=== PATIENT | female | born 1955 | race African-American/Black ===

== ENCOUNTER 2019-04-20 14:06 | Outpatient (CLI) | payer MEDICARE ==
--- NOTE | 2019-04-20 15:57 | ULT ---
THYROID ULTRASOUND INDICATION: Elevated parathormone level TECHNIQUE: Grayscale and color Doppler images were obtained of the thyroid gland. COMPARISON: None FINDINGS: Right thyroid lobe: The right thyroid lobe measures 4.3 x 1.8 x 1.7 cm. There is a hypoechoic 8 mm so lid nodule within the superior pole of the right thyroid lobe. And it additional 6 mm predominantly solid nodule seen within the superior to mid right thyroid lobe. Small thyroid cysts are seen within the midpole of the right thyroid gland. Thyroid isthmus: The thyroid isthmus measures 0.4 cm. Left thyroid lobe: The left thyroid lobe measures 4.9 x 1.3 x 1.2 cm. There is a 6 mm cyst within the superior pole of the left thyroid lobe. There is a 4 mm hypoechoic nodule seen within the mid left thyroid lobe. An additional 3 to 4 mm nodule seen within the mid left thyroid lobe. No suspicious nodules are seen in the expected regions of the parathyroid glands. IMPRESSION: 1. TIRADS 3 lesions of the right and left thyroid lobe. These are below 1.5 cm in size. No sonographi c follow up is recommended. 2. No suspicious nodules are seen within the expected regions of the parathyroid glands.
== END 2019-04-20 14:07 | disposition home or self-care (01) ==
LOC: BICULT 14:06
PROVIDERS: ATTEND Otolaryngology Plastic Surgery within the Head & Neck
DX: E34.9 Endocrine disorder, unspecified (principal); E07.89 Other specified disorders of thyroid
CPT/HCPCS: 76536